=== PATIENT | female | born 1940 | race Caucasian/White ===

== ENCOUNTER 2023-08-20 07:09 | Observation (INO) ==
--- NOTE | 2023-07-28 09:13 | PAT Medication Instructions ---
Medication Instructions Date of Service July 28, 2023 Home Medications aspirin 325 mg tablet,delayed release 325 mg PO QAM estradiol 0.5 mg tablet 0.5 mg PO Q2D hydrochlorothiazide 12.5 mg capsule 12.5 mg PO QAM medroxyprogesterone 2.5 mg tablet 2.5 mg PO Q2D multivitamin (Daily Multi-Vitamin tablet) 1 tab PO QAM omega 3-tsk-ggv-fish oil 60 mg-90 mg-500 mg capsule (Fish Oil) 1 cap PO QAM vitamin E (dl, acetate) 45 mg (100 unit) capsule 45 mg PO QAM ASK your prescriber and surgeon aspirin 325 mg tablet,delayed release 325 mg PO QAM estradiol 0.5 mg tablet 0.5 mg PO Q2D medroxyprogesterone 2.5 mg tablet 2.5 mg PO Q2D STOP taking 2 weeks before surgery omega 3-ojx-ydb-fish oil 60 mg-90 mg-500 mg capsule (Fish Oil) 1 cap PO QAM vitamin E (dl, acetate) 45 mg (100 unit) capsule 45 mg PO QAM DO NOT take the morning of surgery hydrochlorothiazide 12.5 mg capsule 12.5 mg PO QAM multivitamin (Daily Multi-Vitamin tablet) 1 tab PO QAM OTHERWISE NOTHING TO EAT OR DRINK AFTER MIDNIGHT Other Notes If you have any questions please call us at [phone] or [phone] or [phone] or [phone]
--- NOTE | 2023-08-04 13:43 | Anesthesiology Consultation ---
Date of Service August 04, 2023 Assessment & Plan (1) Encounter for pre-operative examination: - Infectious disease screening: Per assessment on 08/04/23: No known infectious disease contacts or current infectious disease symptoms. - Outpatient joint assessment: Pt currently scheduled for inpatient pathway. If surgeon requests review for outpatient joint pathway, patient is not recommended candidate for outpatient joint program from anesthesia standpoint based on available information. Chart Review Chart Review: Acceptable Risk for Surgery and Patient seen in Pre Admission Testing Teaching & Discussion Pre-Anesthesia Teaching/Discussion Notes: Instructed NPO after midnight before surgery,except medications with 15 cc of water. Medication instructions provided according to the PAT guidelines. History Surgery Operation Date: 08/20/23 07:00 Proposed Procedures p Right Total Knee Arthroplasty - Ryan Walsh MD Height/Weight Height: 5 ft 2.5 in Weight: 86.3 kg Allergies Allergy/AdvReac Type Severity Reaction Status Date / Time No Known Drug Allergies Allergy Unknown . Verified 07/28/23 08:15 Medications Home Medications Medication Instructions Recorded Confirmed Last Taken aspirin 325 mg tablet,delayed 325 mg PO QAM 07/24/23 07/28/23 Unknown release estradiol 0.5 mg tablet 0.5 mg PO Q2D 07/24/23 07/28/23 Unknown hydrochlorothiazide 12.5 mg capsule 12.5 mg PO QAM 07/24/23 07/28/23 Unknown medroxyprogesterone 2.5 mg tablet 2.5 mg PO Q2D 07/24/23 07/28/23 Unknown multivitamin (Daily Multi-Vitamin 1 tab PO QAM 07/24/23 07/28/23 Unknown tablet) omega 0-vfz-gfs-fish oil 60 mg-90 1 cap PO QAM 07/24/23 07/28/23 Unknown mg-500 mg capsule (Fish Oil) vitamin E (dl, acetate) 45 mg (100 45 mg PO QAM 07/24/23 07/28/23 Unknown unit) capsule Past Medical History Medical History Osteoarthritis Hx of basal cell carcinoma Hypertension Right knee DJD Exercise / Class Metabolic Activity III < 4 Walking/Shop/Light housework Past Family History Family History Other No family history of adverse response to anesthesia Past Surgical History Surgical History Nausea and vomiting after administration of anesthetic agent History of bilateral tubal ligation History of lumbar surgery lumbar area x 2 (no hardware) History of colonoscopy H/O sinus surgery History of left knee replacement Past Anesthesia History No Hx of Anesthesia Complications and No Family Hx of Anesthesia Complications History of PONV No Hx of Motion Sickness and History of PONV Social History Smoking Status: Never smoker Do You Dip or Chew Tobacco: No Hx Alcohol Use: Yes Alcohol type: hard liquor alcohol intake frequency: a few times a week substance use type: does not use Review of Systems Patient denies chest pain, shortness of breath, dyspnea on exertion, fever, chills, cough, wheezing, palpitations. Physical Exam Vital Signs VITALS BP 161/87 P 78 TEMP 97.8 SP02 95%RA RESP 16 PHYSICAL Full cervical extension range of motion. Full TMJ range of motion. TMD 3 finger breaths Mallampati Score 3 Dentition: intact, + implants/caps Lungs: clear throughout to auscultation Cardiac: regular rate and rhythm, no murmurs noted Spine: normal Carotid arteries: negative bruit Extremities: no LE edema Lab Results Anesthesia Preop Results Results Anesthesia Widget: WBC 7.18 K/ul (4.8-10.8) 08/04/23 Hgb 14.1 g/dl (12.0-16.0) 08/04/23 Hct 41.3 % (37.0-47.0) 08/04/23 Plt 316 K/uL (130-400) 08/04/23 Na 138 mmol/L (136-145) 08/04/23 K 3.9 mmol/L (3.5-5.1) 08/04/23 Cl 102 mmol/L (98-107) 08/04/23 CO2 28 mmol/L (21-32) 08/04/23 BUN 20 mg/dl (6-23) 08/04/23 Creat 0.91 mg/dl (0.6-1.2) 08/04/23 Glucose Level 107 mg/dl (70-99(Fasting)) H 08/04/23 PT 10.6 Seconds (9.0-12.0) 08/04/23 PTT 27.7 Seconds (21.0-31.0) 11/27/23 INR 1.0 (0.9-1.1) 08/04/23 Blood Type A Positive 08/04/23 Antibody Screen NEGATIVE 08/04/23 Testing Electrocardiogram Date: 08/04/23 NSR at 71bpm. Chest X-Ray Date: 08/04/23 FINDINGS: Cardiac silhouette is upper limits of normal in size. No pneumothorax, pleural effusion or pulmonary edema. Mild ill-defined right infrahilar opacities. The bones appear grossly intact. IMPRESSION: Right infrahilar opacities favor summation density versus atelectasis. > *Report forwarded to PCP for continuity of care* Echocardiogram Date: 06/01/20 EF 60-65%. Sigmoid septum configuration noted. Grade I DD. Mild DE.
[~2023-08-20 07:09] MED LIST: ACETAMINOPHEN 500 MG TAB PO SCH; BUPIVACAINE 0.25% PF 30 ML VIAL ONE; BUPIVACAINE 0.5 % 5 MG/1 ML PF 10ML VIAL ONE; BUPIVACAINE LIPOSOME/PF 266 MG, BUPIVACAINE/EPINEPHRINE 50 ML, SODIUM CHLORIDE 0.9% PF ... INFIL SCH; CeleBREX 200 MG CAP PO SCH; FAMOTIDINE 20 MG TAB PO SCH; LR 500ML BOLUS, THEN 15ML/HR IV SCH; LR 60ML/HR IV SCH; METOCLOPRAMIDE HCL 10 MG TABLET PO SCH; TRANEXAMIC ACID 1,000 MG **IV Intra-op IV SCH; ceFAZolin 2000MG 2,000 MG/15 ML SYR IV SCH; dexAMETHasone**PF** 10 MG/ML VIAL IV SCH
[2023-08-20] MEDS ORDERED: MIDAZOLAM HCL 1 MG/ML 2ML VIAL ONE (08:17)
[2023-08-20] MEDS ORDERED: fentaNYL citrate PF 100 MCG/2 ML VIAL ONE (08:17)
[2023-08-20] MEDS ORDERED: PROPOFOL IV EMULSION 10 MG/ML 20 ML VIAL IV ONE ×4 (08:18→10:14)
[2023-08-20] MEDS ORDERED: ONDANSETRON INJ 2 MG/ML 2 ML VIAL IV PRN ×2 (08:21→12:16)
[2023-08-20] MEDS ORDERED: fentaNYL citrate PF 100 MCG/2 ML VIAL IV PRN (08:21)
[2023-08-20] MEDS ORDERED: ePHEDrine sulfate 50 MG/ML AMP IV PRN (08:21)
[2023-08-20] MEDS ORDERED: ATROPINE SULFATE 0.1 MG/ML 10ML SYR IV PRN (08:21)
--- NOTE | 2023-08-20 08:46 | History & Physical Bridge Note ---
Date of Service August 20, 2023 History & Physical Bridge Note I have examined the patient, reviewed the History & Physical and in the interval since the performance of the History & Physical I have noted the following changes of clinical significance: no changes noted
[2023-08-20] MEDS ORDERED: BUPIVACAINE/EPINEPHRINE 0.25% 1:200,000 30 ML VIAL ONE (08:57)
[2023-08-20] MEDS ORDERED: BUPIVACAINE LIPOSOME 1.3% 266 MG/20 ML VIAL ONE (08:57)
[2023-08-20] MEDS ORDERED: SODIUM CHLORIDE 0.9% PF 50 ML VIAL ONE (08:57)
--- NOTE | 2023-08-20 10:59 | Operative Report ---
PG Post Operative Report Pre & Post Diagnosis Operation Date: 08/20/23 08:50 Pre-Op Diagnosis: Right Knee Advanced Degenerative Joint Disease Post-Op Diagnosis: Right Knee Advanced Degenerative Joint Disease I identified the patient and participated in the time-out.: Yes Procedure Operation Date: 08/20/23 08:50 Actual Procedures p Right Total Knee Arthroplasty(Right) - Ryan Walsh MD Surgeon Ryan Walsh MD Diazo Technician Tony Longo PA-C Estimated Blood Loss 50 Findings Consistent with Post-Op Diagnosis Operative findings were advanced right knee tricompartment DJD. She had extensive grade 4 [id number]-ea-vgkr disease most severe in the medial compartment. She had osteophytes throughout. Varus deformity to her knee. Large knee joint effusion. Specimens Right knee sent for pathology Anesthesia Type Spinal MAC Complications none Disposition Accompanied Patient To Recovery: No Indications Patient is an 83-year-old female is had a long history of knee problems. She had her left knee replaced about 8 years ago. Over the past several years she developed increased pain discomfort in her right knee. Been through extensive conservative treatment which became less successful over time. X-rays show advanced knee arthritis. She elected proceed with total knee arthroplasty. Description of Procedure Operative implants consist of: 1 Biomet Vanguard size 62.5 right Po stabilized femoral component. 2. Biomet size 67 tibial tray. 3. 10 mm pro stabilized polyethylene insert. 4. 28 x 8 all poly patella. The patient was taken to the operating room, identified, and placed on the operating table in the supine position. All contact areas were appropriately padded. Identified 5 by anesthesia team. A spinal anesthetic and abductor canal block had provided in the holding area. Landon catheter was placed in sterile fashion. Right thigh turn was then placed. The right lower extremity then prepped and draped in usual sterile fashion. Right leg was elevated exsanguinated with use of an Esmarch and the tourniquet was placed at 300 mmHg. An anterior approach of the right knee was then performed to longitudinal incision centered over the patella. Sharp dissection Through subcutaneous tissue down the extensor mechanism. A medial parapatellar arthrotomy incision was made. Some subperiosteal dissection was carried out medially but the fat pad was dissected from Neath patella tendon. Lateral patellofemoral ligament was released. Patella subluxated laterally knee was flexed with the osteophytes taken on distal femur. ACL PCL were released from the distal femur and the tibia subluxated anteriorly. External tibial alignment jig was then placed in the anterior face of the tibia and adjusted 14 mm medially. Proximal tibial cut was removed and a millimeter at best from the medial side. The tibia sized to a size 67. Some osteophytes taken off medial and posterior medially. Attention drawn the femur. The distal femur examined the sharp drop with intramedullary canal was suction. A right 5 degree valgus cutting guide was placed. This femoral cutting block was pinned in place. Distal femoral cut was made to take an additional 3 mm of bone off distal femur. The femur was then sized to a size 62.5. The AP cutting block was pinned parallel to the epicondylar axis which was 4 degrees of external rotation. The anterior cut, anterior chamfer, posterior cut, posterior chamfer cuts were made. The Box cutting guide was placed in the just slight lateral and the box cut was made. The knee was flexed. The remnants of the medial and lateral menisci were excised. The osteophyte taken off the posterior aspect the femur. A trial femoral component was placed for the tibial tray was pinned in maximum external rotation and the drill and stem punch were used to create defect in proximal tibia for the tibial tray. Knee was then trialed and the 10 mm insert fit most appropriately. Attention drawn the patella. The patella was cleaned of all soft tissues. Patella thickness measured 20 mm in thickness was cut down to 13. Was sized to a size 28 patella. The lug holes were drilled for the 28 patella. The lateral osteophyte was removed. Patella button was placed. Knee was taken through range of motion patella tracked nicely with no thumbs test. Attention drawn to placing the permanent components. Nupathe all trial components were removed. Bone plug was placed in the distal femur limit blood loss. A double batch Palacos G cement was mixed. Biomet Vanguard size 62.5 right Po stabilized femoral component, size 67 tibial tray, a 10 mm post stabilized polyethylene insert, and a 28 x 8 all poly patella then cemented in place. Knee was brought out into full extension till cement hardened. Final cement check was then performed. Pericapsular tissues were injected with total 100 cc of combination of 20 cc of Exparel, 30 cc normal saline, 50 cc of quarter percent Marcaine with epinephrine. Patient did receive 1 g tranexamic acid. The tourniquet was then let down for final tourniquet time 58 minutes. Hemostasis assured with electrocautery. The wounds once again irrigated. The extensor Meclomen closed with combination 1 PDS suture #1 Vicryl suture in [id number] fashion. Extensor mechanism checked found to be intact and subcutaneous tissues then closed with 2 Dexon suture in a buried interrupted fashion skin was closed skin anna. Leg was then cleaned and dried and sterile dressing was Xeroform, 4 fours, sterile cast padding, Paresh bandage were applied. Patient then transferred to the recovery room in stable condition. Patient tolerated procedure well and there were no complications. Tony Longo, my physician assistant plant manager, was present for the entire procedure. His assistance was essential and required for appropriate patient positioning, prepping and draping, surgical exposure, performing the technical details of the operation, placement the implants, closure of the wound, and placement of the sterile bandage. I attest to the content of the Intraoperative Record and any orders documented therein. Any exceptions are noted below.
--- NOTE | 2023-08-20 11:48 | XRay Report ---
XR knee RT 1 or 2V routine HISTORY: 83 years-old Female Surgical Post Op right knee arthroplasty COMPARISON: 07/24/2023 TECHNIQUE: 2 views of the right knee FINDINGS: Total joint arthroplasty with patellar resurfacing. Anterior midline skin anna. Expected postopera tive soft tissue swelling with deep tissue air. No acute fracture or dislocation. IMPRESSION: Total joint arthroplasty with expected postoperative changes. ACT 112: Negative or not required by law. The above report was generated using voice recognition software. It may contain grammatical, syntax o r spelling errors. Electronically signed by: Kendrick Cameron M.D. 08/20/2023 11:47 AM
[2023-08-20] MEDS ORDERED: bisacodyL 10 MG SUPP PR PRN (12:16)
[2023-08-20] MEDS ORDERED: NALOXONE HCL 0.4 MG/1 ML VIAL/CARP IV PRN (12:16)
[2023-08-20] MEDS ORDERED: METOCLOPRAMIDE HCL INJ 5 MG/ML 2 ML VIAL IV PRN (12:16)
[2023-08-20] MEDS ORDERED: MAGNESIUM HYDROXIDE SUSP 30 ML UDC PO PRN (12:16)
[2023-08-20] MEDS ORDERED: ALUMINUM/MAGNESIUM SUSP 30 ML UDC PO PRN (12:16)
[2023-08-20] MEDS ORDERED: HYDROmorphone INJ 0.5 MG/0.5 ML SYR IV PRN (12:16)
[2023-08-20] MEDS ORDERED: oxyCODONE HCL IR 5 MG TAB (IMMEDIATE RELEASE) PO PRN (12:16)
[2023-08-20] MEDS: KETOROLAC TROMETHAMINE 15 MG/ML VIAL IV SCH ×2 (13:04→20:37)
[2023-08-20] MEDS: SODIUM CHLORIDE 0.9% 1,000 ML IV SCH ×2 (13:04→23:11)
[2023-08-20] MEDS: ACETAMINOPHEN 500 MG TAB PO SCH ×2 (13:04→20:38)
--- NOTE | 2023-08-20 15:49 | Anesthesiology Progress Note ---
Date of Service August 20, 2023 Anesthesia Post Procedure Vital Signs Vital Signs: Temp Pulse Pulse Resp BP Pulse Ox O2 Del Method 08/20/23 15:34 36.6 C 92 H 18 150/70 H 96 Room Air 08/20/23 14:12 36.7 C 87 14 144/69 H 97 Room Air 08/20/23 13:19 84 14 146/67 H 97 Room Air 08/20/23 12:50 77 15 134/68 96 Room Air 08/20/23 12:20 36.4 C L 80 18 137/65 97 Room Air 08/20/23 12:00 80 14 142/68 H 94 Room Air 08/20/23 11:50 86 12 143/87 H 98 Room Air 08/20/23 11:40 81 20 133/77 95 Room Air 08/20/23 11:30 36.3 C L 88 20 140/65 96 Room Air 08/20/23 11:20 78 18 118/78 94 Room Air 08/20/23 11:10 81 17 123/60 94 Room Air 08/20/23 11:00 80 20 116/60 97 Room Air 08/20/23 10:55 84 18 117/55 L 98 Room Air 08/20/23 10:49 36.4 C L 88 20 111/55 L 98 Oxymask 08/20/23 07:53 36.6 C 72 18 185/84 H 97 Room Air O2 Flow Rate 08/20/23 15:34 08/20/23 14:12 08/20/23 13:19 08/20/23 12:50 08/20/23 12:20 08/20/23 12:00 08/20/23 11:50 08/20/23 11:40 08/20/23 11:30 08/20/23 11:20 08/20/23 11:10 08/20/23 11:00 08/20/23 10:55 08/20/23 10:49 6 08/20/23 07:53 Transfer of Care Handoff Completed per policy Notes Mental Status: alert / awake / arousable and participated in evaluation Patient Amnestic to Procedure: Yes Nausea / Vomiting: adequately controlled Pain: adequately controlled Airway Patency, RR, SpO2: stable & adequate BP & HR: stable & adequate Hydration State: stable & adequate Neuraxial Anesthesia: was administered and sensory block is resolving Anesthetic Complications: no major complications apparent and Pt Satisfied with anesthetic care
[2023-08-20] MEDS: ASCORBIC ACID 500 MG TAB PO SCH (16:43)
[2023-08-20] MEDS: ceFAZolin 2000MG 2,000 MG/15 ML SYR IV SCH (16:43)
[2023-08-20] MEDS ORDERED: TRANEXAMIC ACID / 0.7% NACL 1,000 MG/100 ML BAG IV SCH (17:00)
[2023-08-20] MEDS: ASPIRIN 81 MG ECTAB PO SCH (20:38)
[2023-08-20] MEDS: DOCUSATE SODIUM 100 MG CAP PO SCH (20:39)
[2023-08-20] MEDS: SENNA 8.6 MG TAB PO SCH (20:39)
[2023-08-20] MEDS ORDERED: SENNA 8.6 MG TAB PO SCH (21:00)
[2023-08-21] MEDS: ceFAZolin 2000MG 2,000 MG/15 ML SYR IV SCH (00:31)
[2023-08-21] MEDS: KETOROLAC TROMETHAMINE 15 MG/ML VIAL IV SCH ×2 (03:04→08:32)
[2023-08-21 06:08] LABS: Hematocrit (blood only) 34.4 % (37.0-47.0); Hemoglobin 11.9 g/dl (12.0-16.0); Mean Corpuscular Hemoglobin 31.4 pg (25.0-34.0); Mean Corpuscular Hgb Conc 34.6 g/dL (32.0-36.0); Mean Corpuscular Volume 90.8 fL (80.0-100.0); Mean Platelet Volume 10.7 fL (9.4-12.4); Platelet Count 287 K/uL (130-400); RDW Coefficient of Variation 13.5 % (11.5-14.5); RDW Standard Deviation 45.4 fL (36.4-46.3); Red Blood Count 3.79 M/uL (4.20-5.40); White Blood Count 16.12 K/ul (4.8-10.8)
[2023-08-21 06:18] LABS: Calcium 8.7 mg/dl (8.6-10.3); Creatinine Clr Calc Pharmacy 44.9 ml/min; Est GFR (African American) 60.8 ml/min; Est GFR (Non-African American) 52.4 ml/min; Potassium 3.9 mmol/L (3.5-5.1)
--- NOTE | 2023-08-21 07:38 | Surgery Progress Note ---
Date of Service August 21, 2023 Assessment & Plan (1) Status post right knee replacement: Plan: 83-year-old female postop day 1 from right knee replacement doing quite well. Pain is controlled. She is neurologically intact. She is hoping to go home. Plan: 1. DVT prophylaxis including thigh-high teds, SCDs, aspirin twice a day. 2. PT-OT. She can weight-bear as tolerated.. 3. Pain control doing well with current pain regimen. 4. Disposition she is planned to be discharged to home. She is going to do therapy on her own as she did for her last knee replacement 8 years ago. She will follow-up with me 2 weeks postop Admission and Anticipated Discharge Date Admission Date: August 20, 2023 Subjective 83-year-old female postop day 1 from right knee replacement. She is doing well. Really fairly manageable and minimal pain. Denies any chest pain or shortness of breath. Not feeling dizzy or lightheaded. She is hoping to go home this morning after therapy. Physical Exam Physical Exam: Physical exam shows a pleasant elderly female. As she is setting of bedside chair looks comfortable. Examination of the right leg reveals leg to be well aligned. She can dorsiflex and plantarflex her foot appropriately. She can do a good straight leg raise. She is neurologically intact. Neck: trachea midline, no thyromegaly Respiratory: normal respiratory effort, lungs clear to auscultation Cardiovascular: RRR, no murmur, no edema Gastrointestinal (Abdomen): normal bowel sounds, soft, nontender, no hepatosplenomegaly Results & Data Vital Signs (Past 12 Hours) Vital Signs Temp Pulse Resp BP Pulse Ox O2 Del Method 08/21/23 07:18 36.7 C 75 18 159/77 H 98 Room Air 08/21/23 03:05 36.7 C 80 12 129/69 95 Room Air 08/21/23 00:30 36.6 C 82 18 122/64 94 Room Air Laboratory Results Hemoglobin is 11.9. Hematocrit is 34.4. Electrolytes are stable. PG Care Time/CCT Total # of Minutes Spent Total Time Spent with Patient: Total time spent is greater than 50% in coordination of care (as documented) at patient's floor/unit and/or counseling patient: Coding Level of Care Code 64766 Post Operative Follow-Up Diagnoses Status post right knee replacement Z96.651
[2023-08-21] MEDS ORDERED: dexAMETHasone 10 MG in SYRINGE 0 ML IV SCH (08:00)
[2023-08-21] MEDS: DOCUSATE SODIUM 100 MG CAP PO SCH (08:26)
[2023-08-21] MEDS: SENNA 8.6 MG TAB PO SCH (08:27)
[2023-08-21] MEDS: ASPIRIN 81 MG ECTAB PO SCH (08:31)
[2023-08-21] MEDS: ACETAMINOPHEN 500 MG TAB PO SCH (08:31)
[2023-08-21] MEDS: ASCORBIC ACID 500 MG TAB PO SCH (08:31)
[2023-08-21] MEDS ORDERED: OMEGA-3 (PURIFIED FISH OIL) 1 GM CAP PO SCH (09:00)
[2023-08-21] MEDS ORDERED: hydroCHLOROthiazide 25 MG TAB PO SCH (09:00)
[2023-08-21] MEDS ORDERED: TOCOPHERYL, DL-ALPHA 100 UNITS 67 MG CAP PO SCH (09:00)
[2023-08-21] MEDS ORDERED: MULTIVITAMIN TAB PO SCH ×2 (09:00)
--- NOTE | 2023-08-21 09:54 | Discharge Summary ---
Date of Service August 21, 2023 Principal Diagnosis Same as "Discharge Diagnosis" noted below under Discharge Instructions. Discharge Exam Physical exam shows a pleasant elderly female. As she is setting of bedside chair looks comfortable. Examination of the right leg reveals leg to be well aligned. She can dorsiflex and plantarflex her foot appropriately. She can do a good straight leg raise. She is neurologically intact. Discharge Data Procedures Performed Operation Date: 08/20/23 08:50 Actual Procedures p Right Total Knee Arthroplasty(Right) - Ryan Walsh MD Ordered Studies 08/20/23 05:00 US - OR guided needle placemen Urgent Hospital Course (1) Status post right knee replacement: On August 20, 2023 [facility] a right total knee arthroplasty without complications. She had a spinal anesthetic. Postoperatively, she was started on aspirin for DVT prophylaxis and transferred to the general orthopedic floor in stable condition. Her hospital course was uneventful. On postoperative day #1, her vital signs were stable and her pain was well-controlled. She participated well with physical therapy doing ambulation and range of motion exercises. She was then discharged home in stable condition. She will follow-up with Dr. Walsh in 2 weeks for postoperative care. PG Care Time/CCT Total # of Minutes Spent Total Time Spent with Patient: Total time spent is greater than 50% in coordination of care (as documented) at patient's floor/unit and/or counseling patient: Discharge Plan Discharge Items Patient Disposition: Home - Self-Care Reason For Visit: Right Knee DJD Discharge Diagnosis: Right Knee Replacement Activity: Per Instructions section Weightbearing: Full weightbearing Non-emergency contact: Surgeon Call non-emergency contact if: you have any medication questions Follow-up/Referrals: Tara Riojas CRNP [Primary Care Provider] - Diet: Regular Addtl Attending Provider Instructions: ACTIVITY RECOMMENDATIONS: Physical Therapy: * You will go to physical therapy three times each week for four to six weeks after your surgery in order to regain your knee range of motion and to retrain your knee to work properly. * It is just as important to make sure you are getting your knee perfectly straight as it is to regain your knee bend. * Taking a pain pill an hour before therapy can help you have a more productive and comfortable therapy session. Home Exercise: * You were shown a series of exercises (heel props, heel slides, etc.) in the hospital. Do these exercises three to four times each day including the exercises you were shown in physical therapy. Walking: * Get up and walk several times each day. For the first four weeks, try not to stand or walk for more than one hour at a time. If you do stand or walk for more than one hour, you will not hurt anything, but your knee and leg will likely swell. * As you feel comfortable, you may change from the walker or crutches to a cane and then to independent walking. MEDICATIONS: New Medicine: * You will likely be taking one or more of these medications: 1. Oxycodone - A quick and shorter-acting pain medication. Take one to two tablets every six hours to lessen your pain. 2. Aspirin - Thins your blood to lessen the chance of forming a blood clot. * The most common side effects of pain medicine and iron are nausea and constipation. If nausea or constipation is too much of a problem or if you have any que stions about your new medicines or doses, call [facility] at . We will try to help you manage these issues. "VERY IMPORTANT TO READ AND REVIEW" Pain: * The immediate post-operative period after knee replacement surgery is often quite painful. * You are given a prescription for pain medicine. You should take it, as directed, when you need it, especially before physical therapy and before going to bed. Pain that interferes with sleep is very common and can last several months. * You will likely need pain medicine for the first four to six weeks. It will not stop all of the pain. The pain will lessen and as you feel better, you may change to milder pain medicine such as Tylenol. * The most common side effects of pain medicine are nausea and constipation, so don't take more than you need. SPECIAL CARE INSTRUCTIONS: TEDs/Elastic Stockings: * The white elastic stockings help limit swelling and prevent blood clots from forming in your legs. The more you wear them, the more they work. * Wear them for six weeks after knee replacement surgery and four weeks after partial knee replacement. Incision Site Care: * Remove dressing postoperative day 2 and then shower. Keep direct shower pressure off the incision site. * After showering, cover anna with dry gauze and change daily or more frequently if the dressing is getting saturated with drainage. * Use the LETI stockings to hold dressing in place. DO NOT apply tape on the skin. * May completely stop using bandage if wound is dry and no drainage * Anna are removed between 2 and 3 weeks post-op. If your follow-up appointment is made before 2 weeks, please have your appointment re- scheduled. It is too early to remove the anna. Prevention of Infection: * Take antibiotics one hour before any dental cleaning, dental work, urological procedure, gastrointestinal procedure or any invasive surgery in order to prevent your new joint from getting infected. * You may get the antibiotics from the doctor performing the procedure or you may call our office at [phone] before and we will call in a prescri ption to the pharmacy of your choice. Things to Watch For: * Drainage from the incision site that occurs more than one week after your surgery. * Severely increased knee/leg pain or swelling. * Increased redness at the incision site. * Fever above 102 degrees Fahrenheit. * Unusual chest pain or shortness of breath. * Unusual pain or burning with urination. Call [facility] at [phone] with any of the above problems or if you have any questions about your medicines or recovery. FOLLOW UP VISIT: Make an appointment to see your doctor for approximately two weeks after surgery for a progress check and staple removal by calling the office at [phone]. Pending Studies at Discharge: No Stand-Alone Forms: My [facility], Smoking Cessation Medications and DC Order Prescriptions: Continued oxycodone 5 mg tablet 5 - 10 mg PO Q6 PRN (Reason: pain) Qty: 40 0RF Rx Instructions: Take as needed for pain ketorolac 10 mg tablet 10 mg PO Q6 5 Days Qty: 20 0RF Patient Comments: post op Rx Instructions: Take 4 times per day with food for 5 days to lessen pain and swelling. ondansetron 4 mg tablet,disintegrating 4 mg PO Q8 PRN (Reason: nausea) Qty: 20 1RF Rx Instructions: Take as needed for nausea sennosides [Senokot] 8.6 mg tablet 8.6 mg PO BID 14 Days Qty: 28 0RF Rx Instructions: Take two times a day to prevent/treat constipation acetaminophen [Tylenol Extra Strength] 500 mg tablet 1,000 mg PO TID 30 Days Qty: 180 0RF Rx Instructions: Take 3 times per day to lessen pain. aspirin [Marquita Low Dose Aspirin] 81 mg tablet,delayed release (DR/EC) 81 mg PO BID 45 Days Qty: 90 0RF Patient Comments: to start post op Rx Instructions: Take to prevent blood clots. cefadroxil 500 mg capsule 500 mg PO BID 7 Days Qty: 14 0RF Rx Instructions: Take 1 cap twice a day to prevent infection estradiol [Estrace] 0.5 mg tablet 0.5 mg PO Q2D medroxyprogesterone [Provera] 2.5 mg tablet 2.5 mg PO Q2D hydrochlorothiazide 12.5 mg capsule 12.5 mg PO QAM multivitamin [Daily Multi-Vitamin] Tablet 1 tab PO QAM vitamin E (dl, acetate) 45 mg (100 unit) capsule 45 mg PO QAM omega [id number]-fish oil [Fish Oil] 60-90-500 mg capsule 1 cap PO QAM Discontinued aspirin 325 mg tablet,delayed release (DR/EC) 325 mg PO QAM Discharge Orders: Discharge Order (Routine); Ordered 08/21/23 Ordered By: Ryan Walsh Admission Data Admit Date/Time: 08/20/23 10:53 Attending Provider: Ryan Walsh Admit Provider: Ryan Walsh Primary Care Provider: Tara Riojas Other Providers: [facility]
== END 2023-08-21 11:08 | disposition home or self-care (01) ==
LOC: 3E 07:09 → ASU 07:09